=== PATIENT | female | born 1985 | race Caucasian/White ===

== ENCOUNTER 2017-09-30 09:06 | Emergency (ER) | payer OTHER ==
[~2017-09-30] VITALS: Ht 149.9 cm; Wt 78.9 kg
[2017-09-30 09:25] VITALS: BP 149/91
[2017-09-30] MEDS ORDERED: TETANUS-DIPTH-ACEL PERTUSSIS 0.5ML SYRG IM ONE (10:15)
[2017-09-30 11:02] LABS: Hepatitis B Surface Antibody Positive
[2017-09-30 11:14] LABS: Hepatitis B Surface Antigen Negative (Negative)
== END 2017-09-30 10:28 | disposition home or self-care (01) ==
LOC: ER 09:06
DX: S61.200A Unspecified open wound of right index finger without damage to nail, initial encounter (principal); W46.0XXA Contact with hypodermic needle, initial encounter; Y93.89 Activity, other specified; Y99.8 Other external cause status; Y92.89 Other specified places as the place of occurrence of the external cause
CPT/HCPCS: 36415; 86703; 86706; 86803; 87340; 90471; 90715